=== PATIENT | female | born 1940 | race Caucasian/White ===

== ENCOUNTER 2017-11-08 11:18 | Inpatient (IN) ==
[2017-11-08] MEDS ORDERED: 0.9 % Sodium Chloride 1,000 ML IVC ONE (11:28)
--- NOTE | 2017-11-08 11:30 | Emergency Department Note ---
Disposition Clinical Impression: GI bleed, Leukocytosis, Tachycardia Disposition: Admitted As Inpatient Condition: Fair General Adult HPI - General Chief complaint: ED Syncope Stated complaint: Weakness,Black Stool Time Seen by Provider: 11/08/17 11:24 Source: patient Limitations: no limitations - History of Present Illness Pain Scale: 0 - Related Data Home Medications Medication Instructions Recorded Confirmed Amitriptyline [Elavil] 25 mg PO HS 11/08/17 11/08/17 Aspirin [Lo-Dose Aspirin EC] 81 mg PO DAILY 11/08/17 11/08/17 Previous Rx's Medication Instructions Recorded Clopidogrel [Plavix] 75 mg PO DAILY #30 tablet 08/27/17 Allergies Allergy/AdvReac Type Severity Reaction Status Date / Time No Known Allergies Allergy Verified 10/24/17 14:59 Past Medical History - Past Medical History Medical history: Reports: aortic aneurysm, coronary artery disease Surgical history: Reports: non-contributory Psychiatric history: Reports: no psych history SURVEYOR 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 ASSISTANT history: Reports: no SURVEYOR INSTRUMENT ASSISTANT history - Social History Smoking Status: Never smoker Smokeless Tobacco Status: No Alcohol use: Reports: none Drug use: Reports: none Physical Exam - General Limitations: no limitations General appearance: alert, in no apparent distress Course Vital Signs Temperature 98.1 F 11/08/17 11:19 Pulse Rate 130 11/08/17 11:19 Respiratory Rate 20 11/08/17 11:19 Blood Pressure 146/99 11/08/17 11:19 O2 Sat by Pulse Oximetry 99 11/08/17 11:19 Temperature 98.1 F 11/08/17 17:19 Pulse Rate 125 11/08/17 15:15 Respiratory Rate 20 11/08/17 17:19 Blood Pressure 135/63 11/08/17 17:19 O2 Sat by Pulse Oximetry 99 11/08/17 15:15 Oxygen Delivery Oxygen Delivery Room Air Medical Decision Making - Lab Data Result diagrams: 11/08/17 15:10 11/08/17 11:38 Lab Results 11/08/17 11/08/17 11/08/17 Range/Units 11:38 11:38 11:38 WBC 24.1 H (4.3-11.1) K/mcL RBC 3.03 L (3.82-4.97) M/mcL Hgb 9.4 L (11.5-15.4) g/dL Hct 28.5 L (35.3-44.9) % MCV 94.1 (83.0-100.0) fL MCH 31.0 (28.0-33.3) pg MCHC 33.0 (31.6-35.5) g/dL RDW 14.1 (11.5-14.5) % Plt Count 329 (140-400) K/mcL MPV 10.1 (9.4-12.4) fL Immature Gran % 3.7 (0-4) % Seg Neutrophils % 85.8 % Lymphocytes % 5.4 % Monocytes % 5.0 % Eosinophils % 0.0 % Basophils % 0.1 % Neutrophils # 20.7 H (1.6-8.9) K/mcL Lymphocytes # 1.3 (0.6-4.6) K/mcL Monocytes # 1.2 (0.0-1.3) K/mcL Eosinophils # 0.0 (0.0-0.6) K/mcL Basophils # 0.0 (0.0-0.2) K/mcL PT 11.9 (9.4-12.1) Seconds INR 1.1 Sodium 135 L (136-145) mEq/L Potassium 4.4 (3.5-5.1) mEq/L Chloride 106 (98-107) mEq/L Carbon Dioxide 19 L (23-29) mEq/L BUN 78 H (8-23) mg/dL Creatinine 1.01 (0.60-1.20) mg/dL Est GFR ( Amer) > 60 (> 60) Est GFR (Non-Af Amer) 53 L (> 60) BUN/Creatinine Ratio 77 H (6-26) Glucose 252 H (70-105) mg/dL POC Glucose (70-99) mg/dL Calculated Osmolality 312 H (280-300) Lactic Acid (0.5-2.2) mmol/L Calcium 8.3 L (8.6-10.3) mg/dL Magnesium 2.2 (1.6-2.6) mg/dL Total Bilirubin 0.5 (0.3-1.0) mg/dL AST 9 L (13-39) Units/L ALT 10 (7-52) Units/L Alkaline Phosphatase 76 (34-104) Units/L Troponin I 0.03 (< 0.04) ng/mL Serum Total Protein 5.7 L (6.4-8.9) g/dL Albumin 3.4 L (3.5-5.7) g/dL Globulin 2.3 L (2.4-3.5) g/dL Albumin/Globulin Ratio 1.5 (1.1-2.2) Urine Color (Yellow) Urine Clarity (Clear) Urine pH (5.0-8.0) pH Units Ur Specific [place] (1.010-1.025) Urine Protein (Neg-Trace) mg/dL Urine Glucose (UA) (Normal) mg/dL Urine Ketones (Negative) mg/dL Urine Blood (Negative) Urine Nitrite (Negative) Urine Bilirubin (Negative) Urine Urobilinogen (Normal) mg/dL Ur Leukocyte Esterase (Negative) Blood Type Antibody Screen Crossmatch 11/08/17 11/08/17 11/08/17 Range/Units 11:38 11:43 12:08 WBC (4.3-11.1) K/mcL RBC (3.82-4.97) M/mcL Hgb (11.5-15.4) g/dL Hct (35.3-44.9) % MCV (83.0-100.0) fL MCH (28.0-33.3) pg MCHC (31.6-35.5) g/dL RDW (11.5-14.5) % Plt Count (140-400) K/mcL MPV (9.4-12.4) fL Immature Gran % (0-4) % Seg Neutrophils % % Lymphocytes % % Monocytes % % Eosinophils % % Basophils % % Neutrophils # (1.6-8.9) K/mcL Lymphocytes # (0.6-4.6) K/mcL Monocytes # (0.0-1.3) K/mcL Eosinophils # (0.0-0.6) K/mcL Basophils # (0.0-0.2) K/mcL PT (9.4-12.1) Seconds INR Sodium (136-145) mEq/L Potassium (3.5-5.1) mEq/L Chloride (98-107) mEq/L Carbon Dioxide (23-29) mEq/L BUN (8-23) mg/dL Creatinine (0.60-1.20) mg/dL Est GFR ( Amer) (> 60) Est GFR (Non-Af Amer) (> 60) BUN/Creatinine Ratio (6-26) Glucose (70-105) mg/dL POC Glucose 218 H (70-99) mg/dL Calculated Osmolality (280-300) Lactic Acid (0.5-2.2) mmol/L Calcium (8.6-10.3) mg/dL Magnesium (1.6-2.6) mg/dL Total Bilirubin (0.3-1.0) mg/dL AST (13-39) Units/L ALT (7-52) Units/L Alkaline Phosphatase (34-104) Units/L Troponin I (< 0.04) ng/mL Serum Total Protein (6.4-8.9) g/dL Albumin (3.5-5.7) g/dL Globulin (2.4-3.5) g/dL Albumin/Globulin Ratio (1.1-2.2) Urine Color Yellow (Yellow) Urine Clarity Clear (Clear) Urine pH 5.5 (5.0-8.0) pH Units Ur Specific [place] 1.024 (1.010-1.025) Urine Protein Negative (Neg-Trace) mg/dL Urine Glucose (UA) 100 H (Normal) mg/dL Urine Ketones Negative (Negative) mg/dL Urine Blood Negative (Negative) Urine Nitrite Negative (Negative) Urine Bilirubin Negative (Negative) Urine Urobilinogen Normal (Normal) mg/dL Ur Leukocyte Esterase Negative (Negative) Blood Type O POSITIVE Antibody Screen NEGATIVE Crossmatch See Detail 11/08/17 Range/Units 12:17 WBC (4.3-11.1) K/mcL RBC (3.82-4.97) M/mcL Hgb (11.5-15.4) g/dL Hct (35.3-44.9) % MCV (83.0-100.0) fL MCH (28.0-33.3) pg MCHC (31.6-35.5) g/dL RDW (11.5-14.5) % Plt Count (140-400) K/mcL MPV (9.4-12.4) fL Immature Gran % (0-4) % Seg Neutrophils % % Lymphocytes % % Monocytes % % Eosinophils % % Basophils % % Neutrophils # (1.6-8.9) K/mcL Lymphocytes # (0.6-4.6) K/mcL Monocytes # (0.0-1.3) K/mcL Eosinophils # (0.0-0.6) K/mcL Basophils # (0.0-0.2) K/mcL PT (9.4-12.1) Seconds INR Sodium (136-145) mEq/L Potassium (3.5-5.1) mEq/L Chloride (98-107) mEq/L Carbon Dioxide (23-29) mEq/L BUN (8-23) mg/dL Creatinine (0.60-1.20) mg/dL Est GFR ( Amer) (> 60) Est GFR (Non-Af Amer) (> 60) BUN/Creatinine Ratio (6-26) Glucose (70-105) mg/dL POC Glucose (70-99) mg/dL Calculated Osmolality (280-300) Lactic Acid 2.8 H (0.5-2.2) mmol/L Calcium (8.6-10.3) mg/dL Magnesium (1.6-2.6) mg/dL Total Bilirubin (0.3-1.0) mg/dL AST (13-39) Units/L ALT (7-52) Units/L Alkaline Phosphatase (34-104) Units/L Troponin I (< 0.04) ng/mL Serum Total Protein (6.4-8.9) g/dL Albumin (3.5-5.7) g/dL Globulin (2.4-3.5) g/dL Albumin/Globulin Ratio (1.1-2.2) Urine Color (Yellow) Urine Clarity (Clear) Urine pH (5.0-8.0) pH Units Ur Specific [place] (1.010-1.025) Urine Protein (Neg-Trace) mg/dL Urine Glucose (UA) (Normal) mg/dL Urine Ketones (Negative) mg/dL Urine Blood (Negative) Urine Nitrite (Negative) Urine Bilirubin (Negative) Urine Urobilinogen (Normal) mg/dL Ur Leukocyte Esterase (Negative) Blood Type Antibody Screen Crossmatch Critical Care Time Critical Care Time: Yes Total Critical Care Time: 30 Attestation: The high probability of a clinically significant, sudden or life threatening deterioration of the [] system(s) required my full and direct attention, intervention and personal management. The aggregate critical care time was [] minutes. This time is in addition to time spent performing reported procedures but includes the following: [] Data Review and interpretation [] Patient assessment and monitoring of vital signs [] Documentation [] Medication orders and management Attestation Statement - Attestation Attestation: I examined this patient and my medical decision-making was reviewed with the Resident Physician. I agree with the documented findings, disposition and treatment plan as described except to the extent set forth below. [id number] time provided Patient arrives complaining of generalized weakness and dark colored stools. She is uncertain whether she takes blood thinners other than aspirin. She appears in no acute distress on exam. Workup in conjunction with the resident physician initiated
--- NOTE | 2017-11-08 11:40 | Emergency Department Note ---
Disposition Clinical Impression: Tachycardia GI bleed Qualifiers: GI bleed type/associated pathology: melena Qualified Code(s): K92.1 - Melena Leukocytosis Qualifiers: Leukocytosis type: unspecified Qualified Code(s): D72.829 - Elevated white blood cell count, unspecified Disposition: Admitted As Inpatient Condition: Fair Referrals: Renny Phelan Jr, MD [Primary Care Provider] - Forms: ED Satisfaction Letter Time of Disposition: 13:07 General Adult HPI - General Chief complaint: ED Syncope Stated complaint: Weakness,Black Stool Time Seen by Provider: 11/08/17 11:24 Source: patient Mode of arrival: ambulatory Limitations: no limitations Nursing Notes Reviewed: Yes Vital Signs Reviewed: Yes - History of Present Illness HPI Narrative: 77-year-old female currently on Plavix and aspirin presenting to the emergency Department chief complaint of weakness and black, tarry stools. Patient states for the past 3 days she has been feeling weak every time she has a bowel movement and has had dark, black tarry stools. Patient denies any history of GI bleed. Denies any chest pain or shortness of breath. Patient denies any fevers or recent illnesses. Denies any sick contacts. Pain Scale: 0 - Related Data Home Medications Medication Instructions Recorded Confirmed Amitriptyline [Elavil] 25 mg PO HS 11/08/17 11/08/17 Aspirin [Lo-Dose Aspirin EC] 81 mg PO DAILY 11/08/17 11/08/17 Previous Rx's Medication Instructions Recorded Clopidogrel [Plavix] 75 mg PO DAILY #30 tablet 08/27/17 Allergies Allergy/AdvReac Type Severity Reaction Status Date / Time No Known Allergies Allergy Verified 10/24/17 14:59 All systems ED: reviewed and negative except as stated. Gastrointestinal: Reports: melena Neurological: Reports: weakness Past Medical History - Past Medical History Attestation: Yes The following information was validated with the patient. Medical history: Reports: aortic aneurysm, coronary artery disease Surgical history: Reports: non-contributory Psychiatric history: Reports: no psych history ANIMAL CARE SPECIALIST history: Reports: no ANIMAL CARE SPECIALIST history - Social History Smoking Status: Never smoker Smokeless Tobacco Status: No Alcohol use: Reports: none Drug use: Reports: none Physical Exam - General Limitations: no limitations General appearance: alert, in no apparent distress - Head Head exam: atraumatic, normocephalic, normal inspection - Eye Eye exam: Present: normal appearance. Absent: scleral icterus, conjunctival injection - ENT ENT exam: normal exam, mucous membranes moist - Neck Neck exam: Present: normal inspection, full ROM. Absent: tenderness, meningismus - Chest Chest inspection: Present: normal inspection, symmetric chest wall rise. Absent : tenderness, rash - Respiratory Respiratory exam: Present: normal lung sounds bilaterally. Absent: respiratory distress, wheezes - Cardiovascular Cardiovascular exam: Present: normal rhythm, tachycardia - Abdominal Exam Abdominal exam: Present: soft, tenderness. Absent: distention, guarding, rebound, rigidity - Extremities Exam Extremities exam: Present: normal inspection, full ROM - Neurological Exam Neurological exam: Present: alert, oriented X3 - Psychiatric Psychiatric exam: Present: normal affect, normal mood - Skin Skin exam: Present: warm, intact Course Course Narrative: 77-year-old female presenting with GI bleed. Patient currently on Plavix and aspirin. Patient tachycardic upon arrival at 130 bpm. Otherwise vital signs stable. Bedside stool occult positive. We will provide the patient with a liter of fluids, Protonix and basic laboratory analysis along with type and screen. Disposition will be admission but pending results. Patient is alert and oriented 3 in the room. Tachycardic but otherwise stable. Patient agrees with this plan. - Reevaluation(s) Reevaluation #1: Patient's white blood cell count elevated. Due to this and her tachycardia we will add a urine analysis and chest x-ray to rule out any other infectious cause. Patient is alert and oriented 3 in the room. Tachycardic but otherwise stable. Patient agrees with this plan. Reevaluation #2: Patient's chest x-ray shows atelectasis versus pneumonia. Urine analysis within normal limits. I spoke with the hospitalist on-call who agrees to accept the patient at this time. We have not started the patient on antibiotics as we do not feel that she shows clinical signs and symptoms of pneumonia. Patient was given Protonix, fluid and is stable at this time. She is alert and oriented 3 in the room. Patient's heart rate lower but still tachycardic. Otherwise patient stable. We will plan to admit the patient at this time. Patient agrees with this plan. Vital Signs Temperature 98.1 F 11/08/17 11:19 Pulse Rate 130 11/08/17 11:19 Respiratory Rate 20 11/08/17 11:19 Blood Pressure 146/99 11/08/17 11:19 O2 Sat by Pulse Oximetry 99 11/08/17 11:19 Temperature 98.1 F 11/08/17 11:19 Pulse Rate 126 11/08/17 12:32 Respiratory Rate 18 11/08/17 12:32 Blood Pressure 135/63 11/08/17 12:32 O2 Sat by Pulse Oximetry 100 11/08/17 12:32 Oxygen Delivery Oxygen Delivery Room Air Medical Decision Making - Lab Data Result diagrams: 11/08/17 11:38 11/08/17 11:38 Lab Results 11/08/17 11/08/17 11/08/17 Range/Units 11:38 11:38 11:38 WBC 24.1 H (4.3-11.1) K/mcL RBC 3.03 L (3.82-4.97) M/mcL Hgb 9.4 L (11.5-15.4) g/dL Hct 28.5 L (35.3-44.9) % MCV 94.1 (83.0-100.0) fL MCH 31.0 (28.0-33.3) pg MCHC 33.0 (31.6-35.5) g/dL RDW 14.1 (11.5-14.5) % Plt Count 329 (140-400) K/mcL MPV 10.1 (9.4-12.4) fL Immature Gran % 3.7 (0-4) % Seg Neutrophils % 85.8 % Lymphocytes % 5.4 % Monocytes % 5.0 % Eosinophils % 0.0 % Basophils % 0.1 % Neutrophils # 20.7 H (1.6-8.9) K/mcL Lymphocytes # 1.3 (0.6-4.6) K/mcL Monocytes # 1.2 (0.0-1.3) K/mcL Eosinophils # 0.0 (0.0-0.6) K/mcL Basophils # 0.0 (0.0-0.2) K/mcL PT 11.9 (9.4-12.1) Seconds INR 1.1 Sodium 135 L (136-145) mEq/L Potassium 4.4 (3.5-5.1) mEq/L Chloride 106 (98-107) mEq/L Carbon Dioxide 19 L (23-29) mEq/L BUN 78 H (8-23) mg/dL Creatinine 1.01 (0.60-1.20) mg/dL Est GFR ( Amer) > 60 (> 60) Est GFR (Non-Af Amer) 53 L (> 60) BUN/Creatinine Ratio 77 H (6-26) Glucose 252 H (70-105) mg/dL Calculated Osmolality 312 H (280-300) Lactic Acid (0.5-2.2) mmol/L Calcium 8.3 L (8.6-10.3) mg/dL Magnesium 2.2 (1.6-2.6) mg/dL Total Bilirubin 0.5 (0.3-1.0) mg/dL AST 9 L (13-39) Units/L ALT 10 (7-52) Units/L Alkaline Phosphatase 76 (34-104) Units/L Troponin I 0.03 (< 0.04) ng/mL Serum Total Protein 5.7 L (6.4-8.9) g/dL Albumin 3.4 L (3.5-5.7) g/dL Globulin 2.3 L (2.4-3.5) g/dL Albumin/Globulin Ratio 1.5 (1.1-2.2) Urine Color (Yellow) Urine Clarity (Clear) Urine pH (5.0-8.0) pH Units Ur Specific [place] (1.010-1.025) Urine Protein (Neg-Trace) mg/dL Urine Glucose (UA) (Normal) mg/dL Urine Ketones (Negative) mg/dL Urine Blood (Negative) Urine Nitrite (Negative) Urine Bilirubin (Negative) Urine Urobilinogen (Normal) mg/dL Ur Leukocyte Esterase (Negative) Blood Type Antibody Screen 11/08/17 11/08/17 11/08/17 Range/Units 11:38 12:08 12:17 WBC (4.3-11.1) K/mcL RBC (3.82-4.97) M/mcL Hgb (11.5-15.4) g/dL Hct (35.3-44.9) % MCV (83.0-100.0) fL MCH (28.0-33.3) pg MCHC (31.6-35.5) g/dL RDW (11.5-14.5) % Plt Count (140-400) K/mcL MPV (9.4-12.4) fL Immature Gran % (0-4) % Seg Neutrophils % % Lymphocytes % % Monocytes % % Eosinophils % % Basophils % % Neutrophils # (1.6-8.9) K/mcL Lymphocytes # (0.6-4.6) K/mcL Monocytes # (0.0-1.3) K/mcL Eosinophils # (0.0-0.6) K/mcL Basophils # (0.0-0.2) K/mcL PT (9.4-12.1) Seconds INR Sodium (136-145) mEq/L Potassium (3.5-5.1) mEq/L Chloride (98-107) mEq/L Carbon Dioxide (23-29) mEq/L BUN (8-23) mg/dL Creatinine (0.60-1.20) mg/dL Est GFR ( Amer) (> 60) Est GFR (Non-Af Amer) (> 60) BUN/Creatinine Ratio (6-26) Glucose (70-105) mg/dL Calculated Osmolality (280-300) Lactic Acid 2.8 H (0.5-2.2) mmol/L Calcium (8.6-10.3) mg/dL Magnesium (1.6-2.6) mg/dL Total Bilirubin (0.3-1.0) mg/dL AST (13-39) Units/L ALT (7-52) Units/L Alkaline Phosphatase (34-104) Units/L Troponin I (< 0.04) ng/mL Serum Total Protein (6.4-8.9) g/dL Albumin (3.5-5.7) g/dL Globulin (2.4-3.5) g/dL Albumin/Globulin Ratio (1.1-2.2) Urine Color Yellow (Yellow) Urine Clarity Clear (Clear) Urine pH 5.5 (5.0-8.0) pH Units Ur Specific [place] 1.024 (1.010-1.025) Urine Protein Negative (Neg-Trace) mg/dL Urine Glucose (UA) 100 H (Normal) mg/dL Urine Ketones Negative (Negative) mg/dL Urine Blood Negative (Negative) Urine Nitrite Negative (Negative) Urine Bilirubin Negative (Negative) Urine Urobilinogen Normal (Normal) mg/dL Ur Leukocyte Esterase Negative (Negative) Blood Type O POSITIVE Antibody Screen NEGATIVE - EKG Data EKG #1 EKG attestation: Yes I reviewed and interpreted this EKG. EKG results narrative: Sinus tachycardia. Left ventricular hypertrophy. 136 bpm. NC interval 132, QRS 82, QTC 364. No signs of acute ST segment elevation or ischemia.
[2017-11-08 11:49] LABS: Basophils % 0.1 %; Hematocrit 28.5 % (35.3-44.9); Hemoglobin 9.4 g/dL (11.5-15.4); Immature Granulocytes % 3.7 % (0-4); Lymphocytes # 1.3 K/mcL (0.6-4.6); Lymphocytes % 5.4 %; Mean Corpuscular Volume 94.1 fL (83.0-100.0); Mean Platelet Volume 10.1 fL (9.4-12.4); Monocytes # 1.2 K/mcL (0.0-1.3); Neutrophils # 20.7 K/mcL (1.6-8.9); Platelet Count 329 K/mcL (140-400); Red Blood Count 3.03 M/mcL (3.82-4.97); Red Cell Distribution Width 14.1 % (11.5-14.5); Segmented Neutrophils % 85.8 %
[2017-11-08 11:58] LABS: INR 1.1; Prothrombin Time 11.9 Seconds (9.4-12.1)
[2017-11-08] MEDS ORDERED: Pantoprazole 40 MG VIAL IVP ONE (11:59)
[2017-11-08 12:11] LABS: Troponin I 0.03 ng/mL (< 0.04)
[2017-11-08 12:12] LABS: Alanine Aminotransferase 10 Units/L (7-52); Albumin 3.4 g/dL (3.5-5.7); Albumin/Globulin Ratio 1.5 (1.1-2.2); Alkaline Phosphatase 76 Units/L (34-104); Aspartate Amino Transferase 9 Units/L (13-39); BUN/Creatinine Ratio 77 (6-26); Bilirubin,Total 0.5 mg/dL (0.3-1.0); Blood Urea Nitrogen 78 mg/dL (8-23); Calcium 8.3 mg/dL (8.6-10.3); Carbon Dioxide 19 mEq/L (23-29); Chloride 106 mEq/L (98-107); Globulin 2.3 g/dL (2.4-3.5); Glucose 252 mg/dL (70-105); Magnesium 2.2 mg/dL (1.6-2.6); Osmolality,Calculated 312 (280-300); Potassium 4.4 mEq/L (3.5-5.1); Sodium 135 mEq/L (136-145); Total Protein 5.7 g/dL (6.4-8.9); eGFR For African Americans > 60 (> 60); eGFR For Non-African Americans 53 (> 60)
[2017-11-08 12:28] LABS: Bilirubin,Urine Negative (Negative); Blood,Urine Negative (Negative); Clarity,Urine Clear (Clear); Color,Urine Yellow (Yellow); Glucose,Urine (UA) 100 mg/dL (Normal); Ketones,Urine Negative (Negative); Leukocyte Esterase,Urine Negative (Negative); Nitrite,Urine Negative (Negative); PH,Urine 5.5 pH Units (5.0-8.0); Protein,Urine Negative (Neg-Trace); Specific Gravity,Urine 1.024 (1.010-1.025); Urobilinogen,Urine Normal (Normal)
--- NOTE | 2017-11-08 13:18 | Internal Med History&Physical ---
Date of Encounter: 11/08/17 Time of Encounter: 13:38 Internal Medicine - H&P: HPI Chief complaint: Dark black stool Admitted From: Emergency Dept Plans for Post Hospital Care: Home History of present illness: Ms. Valdivia is a 77 year old female 77-year-old woman presented in the ER this am with several days of melena. She takes Plavix and aspirin for a prior stroke/cerebral aneurysm. Her last known Hgb is from Aug 2017 (13.3) and today her Hgb is 9.4. Shew was given IV protonix 40 mg once in the ER. Her last dose of both aspirin and Plavix was yesterday. Other than mild weakness she's relatively asymtomatic. However, she has a leukocytosis of 24.1 without fever or any signs of infection. She had a remote EGD and colonoscopy but cannot recall the findings but is sure she did not have ulcers or errosions. While in the ER she developed SVT with rates in the 170s to 200's and a rapid response was called. She was given IVFs and adenosine and converted to sinus tachycardia with a rate in 120-140s. Cardiology was called by the ER and a Cardizem drip was started. Her BP remains stable. Past Med Surg Social Fam HX - Past Medical History Medical history: aortic aneurysm, coronary artery disease Psychiatric history: no psych history - Past Surgical History Surgical History: non-contributory - Social History Smoking Status: Never smoker Smokeless Tobacco Status: No Alcohol use: none Drug use: none Internal Medicine - H&P: Meds Clopidogrel [Plavix] 75 mg PO DAILY #30 tablet 08/27/17 [Rx] Amitriptyline [Elavil] 25 mg PO HS 11/08/17 [History] Aspirin [Lo-Dose Aspirin EC] 81 mg PO DAILY 11/08/17 [History] 3 Allergy/AdvReac Type Severity Reaction Status Date / Time No Known Allergies Allergy Verified 10/24/17 14:59 All Systems PM: A 10-system review of systems was performed and is negative for pertinent findings except as documented above in the HPI. - Constitutional Constitutional: no chills, no fever(s), no lethargy - EENT Eyes: no blurry vision, no diplopia, no pain Nose, mouth and throat: no bleeding gums, no dental pain, no epistaxis - Cardiovascular Cardiovascular ROS IM: irregular heart rhythm, no chest pain, no diaphoresis - Respiratory Respiratory: no dyspnea, no hemoptysis, no wheezing - Gastrointestinal Gastrointestinal: diarrhea, melena, no coffee ground emesis, no dyspepsia, no dysphagia, no vomiting - Neurological Neurological ROS: no abnormal hearing, no abnormal speech, no behavioral changes , no confusion, no dizziness, no frequent falls - Constitutional Vitals: Temp Pulse Resp BP Pulse Ox 98.1 F 126 18 135/63 100 11/08/17 11:19 11/08/17 12:32 11/08/17 12:32 11/08/17 12:32 11/08/17 12:32 General appearance: Present: cooperative, A&O X 3, pleasant, no acute distress - Head Head exam: Present: atraumatic, normocephalic - Eye Eye exam: Present: EOMI, conjuntiva pink, sclera anicteric - ENT ENT exam: Present: mucous membranes moist, normal exam - Neck Neck exam general surgery: Present: full ROM, supple, trachea midline. Absent: nuchal rigidity, thyromegaly - Respiratory Respiratory exam: Present: CTAB. Absent: accessory muscle use, rales, stridor, wheezes, tachypnea - Cardiovascular Cardiovascular exam: Present: tachycardia. Absent: bradycardia, clicks, JVD - GI/Abdominal GI/Abdominal exam: Present: soft. Absent: distended, firm, guarding, rebound, rigid - Neurological Exam Neurological exam: Present: alert, CN II-XII intact, oriented X3. Absent: facial droop - Psychiatric Psychiatric exam: Present: normal affect, normal mood Internal Med - H&P Results - Labs CBC & Chem 7: 11/08/17 11:38 11/08/17 11:38 Labs: Short CBC 11/08/17 Range/Units 11:38 WBC 24.1 H (4.3-11.1) K/mcL Hgb 9.4 L (11.5-15.4) g/dL Hct 28.5 L (35.3-44.9) % Plt Count 329 (140-400) K/mcL Neutrophils # 20.7 H (1.6-8.9) K/mcL BMP 11/08/17 11:38 Sodium 135 L Potassium 4.4 Chloride 106 Carbon Dioxide 19 L BUN 78 H Creatinine 1.01 Glucose 252 H Calcium 8.3 L Cardiac Enzymes 11/08/17 Range/Units 11:38 Troponin I 0.03 (< 0.04) ng/mL Liver Function 11/08/17 Range/Units 11:38 Total Bilirubin 0.5 (0.3-1.0) mg/dL AST 9 L (13-39) Units/L ALT 10 (7-52) Units/L Alkaline Phosphatase 76 (34-104) Units/L Albumin 3.4 L (3.5-5.7) g/dL Urine 11/08/17 Range/Units 12:08 Urine Color Yellow (Yellow) Urine Clarity Clear (Clear) Urine pH 5.5 (5.0-8.0) pH Units Ur Specific [place] 1.024 (1.010-1.025) Urine Protein Negative (Neg-Trace) mg/dL Urine Glucose (UA) 100 H (Normal) mg/dL - Impressions ITS Impressions Chest X-Ray 11/08/17 12:01 IMPRESSION: Subtle increased opacity in right lung base, either atelectasis or pneumonia in the appropriate clinical setting. Otherwise stable chest. D/ / Keyona Lafleur MD / Keyona Lafleur MD Interpreting Provider: Keyona Lafleur MD - Assessment and plan (1) Gastrointestinal hemorrhage with melena Current Visit: Yes Status: Acute Assessment and plan: Serial H&H for q6 hrs for 24 hrs GI called Type and match Continue holding Aspirin and Plavix IVFs at 125 ml/hr Protonix 40mg IVP BID Await recommendations for GI Code(s): K92.1 - Melena (2) SVT (supraventricular tachycardia) Current Visit: Yes Status: Acute Assessment and plan: Adenosine given in ER Cardizem drip started Cardiology consulted Trp being trended (3) Leukocytosis, unspecified Current Visit: Yes Status: Acute Assessment and plan: Cipro and Flagyl empirically started No active signs of infection Qualifiers: Leukocytosis type: unspecified Qualified Code(s): D72.829 - Elevated white blood cell count, unspecified (4) History of cerebral aneurysm repair Current Visit: Yes Status: Acute Assessment and plan: Holding aspirin and Plavix (5) DVT prophylaxis Current Visit: No Status: Chronic Assessment and plan: SCDs No anticoagulation due to GI bleed SNOMED Code(s): 008183498 - Time Spent With Patient Total time spent is greater than 50% in coordination of care (as documented) at patient's floor/unit and/or counseling patient: Greater than 35 minutes
--- NOTE | 2017-11-08 14:01 | Gastroenterology Consult Note ---
<RobertcinthiaMarycarmen H - Last Filed: 11/08/17 14:34> Date of Encounter: 11/08/17 Time of Encounter: 13:59 - Assessment and plan (1) GI bleed Status: Acute Assessment and plan: 77-year-old female currently on aspirin and Plavix for vertebral artery stenosis presents with three-day history of melena, fatigue, and weakness. -Tachycardia which shows minimal improvement with fluid resuscitation in the emergency department. -Hemoglobin currently 9.4. -With tachycardia and hemoglobin trending down, we will order 1 unit of packed red blood cells. -Continue to trend H&H. -Agree with Protonix. -NPO now. -EGD tomorrow, possible colonoscopy the day after. Qualifiers: GI bleed type/associated pathology: melena Qualified Code(s): K92.1 - Melena (2) Tachycardia Status: Acute Assessment and plan: EKG demonstrates sinus tachycardia, no signs of ischemia. -Continue resuscitation of anemia. -Management per primary team. - Time Spent With Patient Total time spent is greater than 50% in coordination of care (as documented) at patient's floor/unit and/or counseling patient: GI History of Present Illness - Data of Consult Patient: new to practice Consult date: 11/08/17 Requesting Physician: Woody Desai - Consult Narrative Reason for consult: GI Bleed History of present illness: Ms. Valdivia is a 77 year old female with past medical history lateral rectus palsy , brain aneurysm, vertigo, internal carotid artery occlusion, and vertebral artery stenosis. Per review of the medical record, patient is taking aspirin and Plavix secondary to stenosis of her vertebral artery. Patient presents to [facility] on 11/08/2017 with complaints of weakness and darkened stool. She states she had been experiencing constipation for which she drank prune juice for around 4 days ago. Approximately 3 days ago, she had a bowel movement, at which time she recognized this as being blackened and tar- like. She complains of generalized fatigue and weakness. She denies any abdominal pain, nausea, vomiting, hematochezia, or hematemesis. She denies any chest pain, shortness of breath, palpitations, nausea, or diaphoresis. Patient does report a history of chronic headaches for which she follows with neurology. She denies any sensory deficits. She denies any active dizziness. Head and neck imaging demonstrates no signs of infarct. Per patient, she states she has never had a colonoscopy. Reports family history of tongue and bowel cancer. Colonoscopy: never EGD: none Past Med Surg Social Fam HX - Past Medical History Attestation: Yes The following information was validated with the patient. Source: patient, old records reviewed Medical history: aortic aneurysm, coronary artery disease Psychiatric history: no psych history - Past Surgical History Surgical History: non-contributory, hysterectomy - Social History Smoking Status: Never smoker Smokeless Tobacco Status: No Alcohol use: none Drug use: none - Gastrointestinal NSAID use: ASA Anticoagulation Use: ASA and Plavix Number of BM Per Day: 1 Gastrointestinal: Present: constipation, melena. Absent: change in bowel habits , coffee ground emesis, diarrhea, hematochezia, nausea, vomiting - Constitutional Constitutional: fatigue, no fever(s), no weight gain, no weight loss - EENT Nose, mouth and throat: Absent: dysphagia - Cardiovascular Cardiovascular ROS: Absent: chest pain, irregular heart rhythm, palpitations - Respiratory Respiratory IM: Absent: cough, dyspnea - Neurological ROS Neurological GI: Present: headache(s), weakness. Absent: frequent falls, memory loss - Integumentary Integumentary GI: Absent: pruritis, rash - Constitutional Vitals: Temp Pulse Resp BP Pulse Ox 98.1 F 126 18 135/63 100 11/08/17 11:19 11/08/17 12:32 11/08/17 12:32 11/08/17 12:32 11/08/17 12:32 General appearance: Present: cooperative, A&O X 3, no acute distress, answers questions appropriately - Head Head exam: Present: atraumatic, normocephalic - Eye Eye exam: Present: normal appearance, sclera anicteric - Neck Neck exam general surgery: Present: normal inspection, trachea midline - Respiratory Respiratory exam: Present: CTAB - Cardiovascular Cardiovascular exam: Present: +S1, +S2, tachycardia - GI/Abdominal GI/Abdominal exam: Present: normal bowel sounds, soft, no peritoneal signs. Absent: firm, guarding, tenderness - Expanded GI/Abdominal Exam GI/Abdominal exam expanded: Absent: ascites - Rectal Rectal exam: Present: black stool (maroon and black), heme (+) stool - Extremities Exam Extremities exam: Present: warm, radial pulses palpable and symmetrical. Absent : pedal edema - Neurological Exam Neurological exam: Present: alert, oriented X3, no focal deficits. Absent: facial droop - Psychiatric Psychiatric exam: Present: normal affect, normal mood - Skin Skin exam: Present: dry, intact, normal color, warm Results - Labs CBC & Chem 7: 11/08/17 11:38 11/08/17 11:38 Labs: Last Result Calcium 8.3 mg/dL (8.6-10.3) L 11/08/17 11:38 Troponin I 0.03 ng/mL (< 0.04) 11/08/17 11:38 Entire Visit Hgb 9.4 g/dL (11.5-15.4) L 11/08/17 11:38 Hct 28.5 % (35.3-44.9) L 11/08/17 11:38 PT 11.9 Seconds (9.4-12.1) 11/08/17 11:38 Total Bilirubin 0.5 mg/dL (0.3-1.0) 11/08/17 11:38 AST 9 Units/L (13-39) L 11/08/17 11:38 ALT 10 Units/L (7-52) 11/08/17 11:38 - ABG ABG results: PT/INR, D-dimer PT 11.9 Seconds (9.4-12.1) 11/08/17 11:38 - Impressions Impressions Chest X-Ray 11/08/17 12:01 IMPRESSION: Subtle increased opacity in right lung base, either atelectasis or pneumonia in the appropriate clinical setting. Otherwise stable chest. D/ / Keyona Lafleur MD / Keyona Lafleur MD Interpreting Provider: Keyona Lafleur MD Consult Discharge Plan - Plan Instructions: Metoprolol (By mouth), Sucralfate (By mouth), Omeprazole (By mouth) Referrals: Cullen Schmidt MD [Partnered Physician] - (1-2 weeks) Renny Phelan Jr, MD [Primary Care Provider] - (1-2 weeks) Prescriptions: Omeprazole [PriLOSEC] 20 mg PO BIDAC #60 cap Sucralfate [Carafate] 1 gm PO QIDAC #120 tablet <Cullen Schmidt - Last Filed: 11/28/17 05:03> Date of Encounter: 11/08/17 - Time Spent With Patient Total time spent is greater than 50% in coordination of care (as documented) at patient's floor/unit and/or counseling patient: GI History of Present Illness - Data of Consult Requesting Physician: Hernan Mckeon MD - Consult Narrative History of present illness: Ms. Valdivia is a 77 year old female - Constitutional Vitals: Temp Pulse Resp BP Pulse Ox 98.0 F 93 15 133/65 96 11/11/17 10:04 11/11/17 10:04 11/11/17 10:04 11/11/17 10:04 11/11/17 10:04 Results - Labs CBC & Chem 7: 11/11/17 03:40 11/10/17 04:18 Labs: Last Result Calcium 8.1 mg/dL (8.6-10.3) L 11/10/17 04:18 Troponin I 0.04 ng/mL (< 0.04) H* 11/09/17 03:45 Entire Visit Hgb 8.5 g/dL (11.5-15.4) L D 11/11/17 03:40 Hct 26.2 % (35.3-44.9) L 11/11/17 03:40 PT 11.9 Seconds (9.4-12.1) 11/08/17 11:38 Total Bilirubin 0.5 mg/dL (0.3-1.0) 11/08/17 11:38 AST 9 Units/L (13-39) L 11/08/17 11:38 ALT 10 Units/L (7-52) 11/08/17 11:38 - ABG ABG results: PT/INR, D-dimer PT 11.9 Seconds (9.4-12.1) 11/08/17 11:38 - Attending Attestation Plan EGD and colonoscopy. Anticoagulation chronic for vertebral artery narrowing. I examined this patient and my medical decision-making was reviewed with the Resident Physician. I agree with the documented findings, disposition and treatment plan as described except to the extent set forth below.
[2017-11-08] MEDS ORDERED: *HR* Adenosine 6 MG/2 ML SYRINGE IVP ONE (14:25)
[2017-11-08] MEDS ORDERED: *HR* Adenosine 6 MG/2 ML VIAL IVP ONE ×2 (14:37)
[2017-11-08 15:23] LABS: Hematocrit 24.9 % (35.3-44.9); Hemoglobin 7.9 g/dL (11.5-15.4)
[2017-11-08] MEDS ORDERED: 0.9 % Sodium Chloride 250 ML ONE ×2 (15:36→22:44)
[2017-11-08] MEDS: MetroNIDAZOLE 500 MG/100 ML 500 MG/100 ML BAG IVPB SCH (18:20)
[2017-11-08] MEDS: Pantoprazole 40 MG VIAL IVP SCH (18:25)
[2017-11-08 20:30] LABS: Hematocrit 22.3 % (35.3-44.9); Hemoglobin 7.5 g/dL (11.5-15.4)
[2017-11-09] MEDS: MetroNIDAZOLE 500 MG/100 ML 500 MG/100 ML BAG IVPB SCH ×3 (02:29→17:20)
[2017-11-09 04:32] LABS: Basophils % 0.1 %; Eosinophils % 0.1 %; Hemoglobin 8.1 g/dL (11.5-15.4); Immature Granulocytes % 4.1 % (0-4); Lymphocytes # 1.6 K/mcL (0.6-4.6); Lymphocytes % 9.1 %; Mean Corpuscular HGB Conc 33.8 g/dL (31.6-35.5); Mean Corpuscular Hemoglobin 30.7 pg (28.0-33.3); Mean Corpuscular Volume 90.9 fL (83.0-100.0); Mean Platelet Volume 10.3 fL (9.4-12.4); Monocytes % 5.7 %; Neutrophils # 13.9 K/mcL (1.6-8.9); Platelet Count 224 K/mcL (140-400); Red Blood Count 2.64 M/mcL (3.82-4.97); Red Cell Distribution Width 15.2 % (11.5-14.5); Segmented Neutrophils % 80.9 %
[2017-11-09] MEDS: Pantoprazole 40 MG VIAL IVP SCH ×2 (05:48→17:19)
[2017-11-09] MEDS ORDERED: *HR* Propofol 200 MG/20 ML VIAL IVP ONE (07:59)
[2017-11-09] MEDS ORDERED: Lidocaine -MPF 2% 2 ML VIAL ONE (08:00)
--- NOTE | 2017-11-09 08:40 | Anesthesia Evaluation PreOp ---
Date of Encounter: 11/09/17 Time of Encounter: 08:34 - Past History Planned Operation: EGD re: Melena admitted thru ER 11/08/17 Cardiac History: Denies any Significant Hx (PVDz), Arrhythmia (SVT yesterday in ED HR 170s-200s converted to ST 120s-140s with Adenosine. Stable since), Pacemaker/ICD, Other (Spoke to Dr. 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 ASA/Plavix started 08/2017 for Carotid Artery occluded branches of Carotid]), Other (BRAIN MRI 08/27/2017 -) Other Medical History: Denies Any Significant HX Anesthesia History: No Prior Anesthetic Complications, Past Anesthesia (Hyster) Alcohol Use: none Drug use: none Medications and Allergies Clopidogrel [Plavix] 75 mg PO DAILY #30 tablet 08/27/17 [Rx] Amitriptyline [Elavil] 25 mg PO HS 11/08/17 [History] Aspirin [Lo-Dose Aspirin EC] 81 mg PO DAILY 11/08/17 [History] 3 Allergy/AdvReac Type Severity Reaction Status Date / Time No Known Allergies Allergy Verified 10/24/17 14:59 - Meds/Allergy Pre-op Review Medications Reviewed: Yes Allergies Reviewed: Yes Beta Blockers on Current Med List: No Anesthesia Results - Labs 11/09/17 03:45 11/08/17 11:38 Laboratory Results WBC 17.2 K/mcL (4.3-11.1) H 11/09/17 03:45 RBC 2.64 M/mcL (3.82-4.97) L 11/09/17 03:45 Hgb 8.1 g/dL (11.5-15.4) L 11/09/17 03:45 Hct 24.0 % (35.3-44.9) L 11/09/17 03:45 MCV 90.9 fL (83.0-100.0) 11/09/17 03:45 MCH 30.7 pg (28.0-33.3) 11/09/17 03:45 MCHC 33.8 g/dL (31.6-35.5) 11/09/17 03:45 RDW 15.2 % (11.5-14.5) H 11/09/17 03:45 Plt Count 224 K/mcL (140-400) 11/09/17 03:45 MPV 10.3 fL (9.4-12.4) 11/09/17 03:45 Immature Gran % 4.1 % (0-4) H 11/09/17 03:45 Seg Neutrophils % 80.9 % 11/09/17 03:45 Lymphocytes % 9.1 % 11/09/17 03:45 Monocytes % 5.7 % 11/09/17 03:45 Eosinophils % 0.1 % 11/09/17 03:45 Basophils % 0.1 % 11/09/17 03:45 Neutrophils # 13.9 K/mcL (1.6-8.9) H 11/09/17 03:45 Lymphocytes # 1.6 K/mcL (0.6-4.6) 11/09/17 03:45 Monocytes # 1.0 K/mcL (0.0-1.3) 11/09/17 03:45 Eosinophils # 0.0 K/mcL (0.0-0.6) 11/09/17 03:45 Basophils # 0.0 K/mcL (0.0-0.2) 11/09/17 03:45 PT 11.9 Seconds (9.4-12.1) 11/08/17 11:38 INR 1.1 11/08/17 11:38 Sodium 135 mEq/L (136-145) L 11/08/17 11:38 Potassium 4.4 mEq/L (3.5-5.1) 11/08/17 11:38 Chloride 106 mEq/L (98-107) 11/08/17 11:38 Carbon Dioxide 19 mEq/L (23-29) L 11/08/17 11:38 BUN 78 mg/dL (8-23) H 11/08/17 11:38 Creatinine 1.01 mg/dL (0.60-1.20) 11/08/17 11:38 Est GFR ( Amer) > 60 (> 60) 11/08/17 11:38 Est GFR (Non-Af Amer) 53 (> 60) L 11/08/17 11:38 BUN/Creatinine Ratio 77 (6-26) H 11/08/17 11:38 Glucose 252 mg/dL (70-105) H 11/08/17 11:38 POC Glucose 218 mg/dL (70-99) H 11/08/17 11:43 Calculated Osmolality 312 (280-300) H 11/08/17 11:38 Lactic Acid 1.5 mmol/L (0.5-2.2) 11/08/17 16:54 Calcium 8.3 mg/dL (8.6-10.3) L 11/08/17 11:38 Magnesium 2.2 mg/dL (1.6-2.6) 11/08/17 11:38 Total Bilirubin 0.5 mg/dL (0.3-1.0) 11/08/17 11:38 AST 9 Units/L (13-39) L 11/08/17 11:38 ALT 10 Units/L (7-52) 11/08/17 11:38 Alkaline Phosphatase 76 Units/L (34-104) 11/08/17 11:38 Troponin I 0.04 ng/mL (< 0.04) H* 11/09/17 03:45 Serum Total Protein 5.7 g/dL (6.4-8.9) L 11/08/17 11:38 Albumin 3.4 g/dL (3.5-5.7) L 11/08/17 11:38 Globulin 2.3 g/dL (2.4-3.5) L 11/08/17 11:38 Albumin/Globulin Ratio 1.5 (1.1-2.2) 11/08/17 11:38 Urine Color Yellow (Yellow) 11/08/17 12:08 Urine Clarity Clear (Clear) 11/08/17 12:08 Urine pH 5.5 pH Units (5.0-8.0) 11/08/17 12:08 Ur Specific [place] 1.024 (1.010-1.025) 11/08/17 12:08 Urine Protein Negative mg/dL (Neg-Trace) 11/08/17 12:08 Urine Glucose (UA) 100 mg/dL (Normal) H 11/08/17 12:08 Urine Ketones Negative mg/dL (Negative) 11/08/17 12:08 Urine Blood Negative (Negative) 11/08/17 12:08 Urine Nitrite Negative (Negative) 11/08/17 12:08 Urine Bilirubin Negative (Negative) 11/08/17 12:08 Urine Urobilinogen Normal mg/dL (Normal) 11/08/17 12:08 Ur Leukocyte Esterase Negative (Negative) 11/08/17 12:08 Blood Type O POSITIVE 11/08/17 11:38 Antibody Screen NEGATIVE 11/08/17 11:38 Crossmatch See Detail 11/08/17 11:38 Impressions Chest X-Ray 11/08/17 12:01 IMPRESSION: Subtle increased opacity in right lung base, either atelectasis or pneumonia in the appropriate clinical setting. Otherwise stable chest. D/ / Keyona Lafleur MD / Keyona Lafleur MD Interpreting Provider: Keyona Lafleur MD CTA 08/27/2017 [id number] CT/CT angio neck IMPRESSION: 1. No significant stenosis of the right internal carotid artery. The findings on the previous MR angiogram are consistent with artifactual loss of signal due to the patient's known stent within the cavernous and supraclinoid segments of the right internal carotid artery. 2. 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 3. Otherwise, unremarkable CT angiogram of the neck. - Imaging EKG: image reviewed Anesthesia Exam O2 Sat Height 1.68 m Weight 76.7 kg Weight 72.575 kg O2 Sat by Pulse Oximetry 98 O2 Sat by Pulse Oximetry 97 O2 Sat by Pulse Oximetry 100 O2 Sat by Pulse Oximetry 100 O2 Sat by Pulse Oximetry 96 O2 Sat by Pulse Oximetry 99 O2 Sat by Pulse Oximetry 98 O2 Sat by Pulse Oximetry 98 O2 Sat by Pulse Oximetry 100 O2 Sat by Pulse Oximetry 99 O2 Sat by Pulse Oximetry 99 Vital Signs Temp Pulse Resp BP Pulse Ox 98.1 F 130 20 146/99 99 11/08/17 11:19 11/08/17 11:19 11/08/17 11:19 11/08/17 11:19 11/08/17 11:19 - HEENT Pupil (Motor): Pupils equal, EOMI Mallampati: II Teeth: Normal Oral Opening: Greater than 3 - ELECTROLYSIS OPERATOR LOC: Oriented ELECTROLYSIS OPERATOR Motor: Normal RUE, Normal LUE, Normal RLE, Normal LLE, Normal Face ELECTROLYSIS OPERATOR Sensory: Normal: RUE, LUE, RLE, LLE, Face - Cardiac Rhythm: Regular Murmur: None - Pulmonary Breath Sounds: bilateral Clear Respiratory Effort: Symmetrical Anesthesia Assess/Plan ASA Score: 3 (Dysrythmia 11/08/2017, CVA/Aneurysm,) Modified Cut Off Scale for Level of Consciousness: Cooperative, oriented, and tranquil Anesthetic Plan: MAC Monitoring Plan: Standard Monitors Recovery Plan: PACU Anes Supervising Prov Stmt: Pt seen/evaluated, R&B discussed, questions answered and consent obtained. Robert Nicole MD
[2017-11-09] MEDS: *HR* EPINEPHrine 1 MG/10 ML SYRINGE INTRATRACH PRN ×2 (09:32→09:42)
[2017-11-09] MEDS ORDERED: *HR* EPINEPHrine 1 MG/10 ML SYRINGE ONE (09:33)
--- NOTE | 2017-11-09 12:40 | Cardiology Consult Note ---
<Vida Maldonado - Last Filed: 11/09/17 12:50> Date of Encounter: 11/09/17 Time of Encounter: 09:00 Assessment and Plan (1) GI bleed Current Visit: Yes Status: Acute Per cardiology: -Admitted with melena, GI bleed. -Management per primary and GI services. Qualifiers: GI bleed type/associated pathology: melena Qualified Code(s): K92.1 - Melena (2) SVT (supraventricular tachycardia) Current Visit: Yes Status: Acute Per cardiology: -Reported SVT while in ER, no strips or ECGs to review. Was given adenosine per reports. -ECG with sinus tachycardia, HR 150s. Review with . -AVerage HR 108,ST -ON cardizem drip. -Will start beta andrey, wean off cardizem drip, -Will check TTE. (3) Elevated troponin Current Visit: Yes Status: Acute Per cardiology: Troponins 0.03, 0.04x3 in the setting of GI bleed, tachycardia. -Denies chest pain. -NO acute ischemic ECG changes. -ON asa, plavix -Do not suspect NSTEMI, suspect demand ischemia related to above. NO cardiac rehab consult warranted. -TTE pending. -Will start statin, beta andrey. (4) Preop cardiovascular exam Current Visit: Yes Status: Acute Per cardiology: -Preop risk assessment for EGD/colonoscopy. Patient seen and examined in endoscopy suite. -Deneis previous cardiac history. -Denies chest pain. -Poor functional capacity. -Repoted SVT on admission. -Ideally, prior to surgery would obtain echocardiogram/stress testing, however EGD is urgent due to acute blood loss. Patient is at least moderate risk for cardiovascular complications in the ru-operative period. Discussed and reviewed with . Discussion w patient/family: The assessment and plan as outlined above was discussed with the patient and/or family members who expressed understanding and agreement. All questions were answered. Thank you for involving us in the care of your patient. Please call with any questions. Discussed and reviewed with . History of Present Illness Consult date: 11/08/17 Requesting physician: Moise Desai Consult reason: SVT Chief complaint: weakness, dark stools. History of present illness: Ms. Valdivia is a 77 year old female with a relevant past medical history of carotid artery stenosis, brain aneurysm who presented to [facility] with complaints of weakness and dark stools. Cardioloy has been consulted for SVT and pre-op risk assessment. Per review of records, SVT was noted while patient was in ER and was given adenosine. No strips, ECGs to review with SVT. Patient denies chest pain. States shortness of breath and dizziness. Patient reports fatigue and states the most activity she does at home is walking around the house. Patient states she is pretty sedentary and stays in her recliner most of the time. Past Med Surg Social Fam HX - Past Medical History Attestation: Yes The following information was validated with the patient. Source: patient, old records reviewed, obtained from family Medical history: other (Carotid artery disease) Psychiatric history: no psych history - Past Surgical History Surgical History: non-contributory - Social History Smoking Status: Never smoker Smokeless Tobacco Status: No Alcohol use: none Drug use: none - Family History Mother Living Status: Age at : 91 Cause of : heart Hx Family Cardiac Disorders: Yes Hx Family Respiratory Disorders: No Hx Family Cancer: No Hx Family Endocrine Disorder: No Hx Family Medical Disorders: Yes Medications and Allergies Clopidogrel [Plavix] 75 mg PO DAILY #30 tablet 08/27/17 [Rx] Amitriptyline [Elavil] 25 mg PO HS 11/08/17 [History] Aspirin [Lo-Dose Aspirin EC] 81 mg PO DAILY 11/08/17 [History] 3 Allergy/AdvReac Type Severity Reaction Status Date / Time No Known Allergies Allergy Verified 10/24/17 14:59 All Systems Review: The remainder of the systems were reviewed and are negative - Constitutional Constitutional: weakness - Cardiovascular Cardiovascular: as per HPI, dyspnea on exertion - Neurological Neurological: dizziness Physical Examination Vital Signs, Last 4 Hours Temp Pulse Resp BP Pulse Ox 11/09/17 11:15 98.1 F 92 16 128/53 99 11/09/17 08:53 93 18 114/58 98 General: Conversant, No Apparent Distress HEENT: Atraumatic, Normocephaly, Mucus Membranes Moist Neck: No JVD, Normal carotid pulses Cardiac: Reg Rate and Rhythm, Normal S1 and S2, No Murmur Lungs: Normal Breath Sounds, No Wheeze, Rales, Rhonchi Neuro: Alert and responsive, No focal deficits noted Abdomen: Soft, Non-Tender Skin: No rashes noted on visualized skin Musculoskeletal: No Chest Wall Tenderness Extremities: No Clubbing, No Cyanosis, Normal Pulses, Other (Mild bilateral pedal edema. ) Results 11/09/17 03:45 11/08/17 11:38 Lab Results Active Medications Epinephrine HCl (Epinephrine) 0.1 mg INTRATRACH Q1MIN PRN PRN Reason: Bleeding Stop: 05/11/18 09:31 Last Admin: 11/09/17 09:42 Dose: 0.1 mg Ciprofloxacin Lactate (Cipro Premix 400 Mg/200 Ml) 400 mg in 200 mls @ 200 mls/ hr IVPB Q12HR AMINA Stop: 05/10/18 18:01 Last Admin: 11/09/17 05:48 Dose: 200 mls/hr Diltiazem HCl 125 mg/ Sodium (Chloride) 125 mls @ 5 mls/hr IVC .Q24H AMINA; 5 MG/ HR PRN Reason: Protocol Stop: 05/10/18 14:46 Last Titration: 11/08/17 23:15 Dose: 10 mg/hr, 10 mls/hr Metronidazole (Flagyl Premix 500 Mg/100 Ml) 500 mg in 100 mls @ 100 mls/hr IVPB Q8H AMINA Stop: 05/11/18 10:01 Last Admin: 11/09/17 09:55 Dose: 100 mls/hr Pantoprazole Sodium (Protonix) 40 mg IVP Q12HR AMINA Stop: 05/10/18 18:01 Last Admin: 11/09/17 05:48 Dose: 40 mg Laboratory Tests 11/08/17 11/08/17 11/08/17 11:38 11:38 15:10 WBC 24.1 H Hgb 9.4 L Creatinine 1.01 Troponin I 0.03 0.04 H* 11/08/17 11/09/17 11/09/17 20:02 03:45 03:45 WBC 17.2 H Hgb 8.1 L Creatinine Troponin I 0.04 H* 0.04 H* - Imaging and Cardiology Chest Xray: report reviewed Echo: pending - EKG Interpretation EKG results cardiology: personally reviewed (ECG with ST, HR 150s.), other ( Telemetry reveiwed with average HR previous 12 hours noted to be 108, ST. PVCs PACs noted. 5 beat run of non-sustained VT noted.) Consult Discharge Plan - Plan Referrals: Renny Phelan Jr, MD [Primary Care Provider] - <oRd Onofre - Last Filed: 11/09/17 16:11> Date of Encounter: 11/09/17 - Attending Attestation I have personally performed a face to face evaluation on this patient. I have reviewed and agree with the care plan. History and Exam by me shows: 77-year-old female presents with GI bleed no previous cardiac history. She had an episode of SVT during her presentation to emergency department possibly sinus tachycardia at a rate of about 1 40 bpm. Currently sinus rhythm below 100 bpm with no EKG changes suggestive of ischemia. Functional capacity was difficult to assess as she is not fairly active. GI bleed with severe anemia and urgent endoscopy was necessary. Patient with moderate risk for cardiac events with urgent endoscopy which is at low risk procedure. Assessment and Plan Discussion w patient/family: The assessment and plan as outlined above was discussed with the patient and/or family members who expressed understanding and agreement. All questions were answered. Thank you for involving us in the care of your patient. Please call with any questions. History of Present Illness History of present illness: Ms. Valdivia is a 77 year old female All Systems Review: The remainder of the systems were reviewed and are negative Physical Examination Vital Signs, Last 4 Hours Temp Pulse Resp BP Pulse Ox 11/09/17 15:26 98.5 F 85 16 132/54 99 Results 11/09/17 03:45 11/08/17 11:38 Lab Results 11/08/17 11/08/17 11/09/17 20:02 20:02 03:45 WBC Hgb 7.5 L Hct 22.3 L Plt Count Troponin I 0.04 H* 0.04 H* 11/09/17 03:45 WBC 17.2 H Hgb 8.1 L Hct 24.0 L Plt Count 224 Troponin I
[2017-11-09] MEDS: Metoprolol XL (24 HR) Succ 25 MG TAB.ER.24H PO SCH (13:13)
--- NOTE | 2017-11-09 15:53 | Internal Med Progress Note ---
Date of Encounter: 11/09/17 Time of Encounter: 10:50 - Assessment and plan (1) Gastrointestinal hemorrhage with melena Current Visit: Yes Status: Acute Assessment and plan: Patient underwent upper GI endoscopy today. Was found to have a 3 cm hiatal hernia with nonbleeding gastric ulcer and nonbleeding erosive gastropathy and duodenopathy. Will place her on Carafate. GI recommends stopping aspirin. Will recommend follow-up with her interventional neurologist for further recommendations. For now continue to hold aspirin and Plavix while we monitor her blood counts. Continue PPI. High risk for complications. Code(s): K92.1 - Melena (2) SVT (supraventricular tachycardia) Current Visit: Yes Status: Ruled-out Assessment and plan: No clear evidence of SVT. Patient appeared to have sinus tachycardia based on her rhythm strips and cardiology evaluation. Will wean off diltiazem drip. (3) Leukocytosis, unspecified Current Visit: Yes Status: Acute Assessment and plan: Improving. Could be related to acute GI bleed. Patient receiving Cipro and Flagyl. Blood cultures ordered. If they remain negative, will consider discontinuing antibiotics. Qualifiers: Leukocytosis type: unspecified Qualified Code(s): D72.829 - Elevated white blood cell count, unspecified (4) History of cerebral aneurysm repair Current Visit: Yes Status: Acute Assessment and plan: Patient underwent interventional procedure for this. Was on aspirin and Plavix. For now holding aspirin and Plavix due to GI bleed. Will attempt to discuss with [facility] regarding this. (5) DVT prophylaxis Current Visit: No Status: Chronic Assessment and plan: With SCDs SNOMED Code(s): 837123326 - Time Spent With Patient Total time spent is greater than 50% in coordination of care (as documented) at patient's floor/unit and/or counseling patient: - Subjective Interval history: Patient is awake and alert. Underwent upper GI endoscopy this morning. Doing well post procedure. Has mild abdominal pain. No palpitations. - Constitutional Vitals: Temp Pulse Resp BP Pulse Ox 98.5 F 85 16 132/54 99 11/09/17 15:26 11/09/17 15:26 11/09/17 15:26 11/09/17 15:26 11/09/17 15:26 General appearance: Present: cooperative, A&O X 3, pleasant, no acute distress - Neck Neck exam general surgery: Present: supple, trachea midline. Absent: lymphadenopathy - Respiratory Respiratory exam: Present: CTAB. Absent: accessory muscle use, rales, rhonchi, wheezes - Cardiovascular Cardiovascular exam: Present: RRR, +S1, +S2. Absent: diastolic murmur, gallop, rubs, systolic murmur - GI/Abdominal GI/Abdominal exam: Present: normal bowel sounds, soft, tenderness (epigastric), no peritoneal signs. Absent: distended - Extremities Exam Extremities exam: Present: warm, radial pulses palpable and symmetrical. Absent : calf tenderness, cyanotic, pedal edema - Neurological Exam Neurological exam: Present: alert, oriented X3, no focal deficits. Absent: facial droop, speech deficit - Skin Skin exam: Present: dry, intact, pallor Internal Medicine: Result - Labs CBC & Chem 7: 11/09/17 03:45 11/08/17 11:38 Labs: Short CBC 11/08/17 11/09/17 Range/Units 20:02 03:45 WBC 17.2 H (4.3-11.1) K/mcL Hgb 7.5 L 8.1 L (11.5-15.4) g/dL Hct 22.3 L 24.0 L (35.3-44.9) % Plt Count 224 (140-400) K/mcL Neutrophils # 13.9 H (1.6-8.9) K/mcL Cardiac Enzymes 11/08/17 11/08/17 11/09/17 Range/Units 15:10 20:02 03:45 Troponin I 0.04 H* 0.04 H* 0.04 H* (< 0.04) ng/mL - ABG Interpretation ABG results: PT/INR, D-dimer PT 11.9 Seconds (9.4-12.1) 11/08/17 11:38 Consult Discharge Plan - Plan Referrals: Renny Phelan Jr, MD [Primary Care Provider] -
[2017-11-09] MEDS: Sucralfate 1 GM TABLET PO SCH ×2 (17:19→21:48)
[2017-11-10] MEDS: MetroNIDAZOLE 500 MG/100 ML 500 MG/100 ML BAG IVPB SCH (02:28)
[2017-11-10 04:52] LABS: Eosinophils % 0.4 %; Hematocrit 20.9 % (35.3-44.9); Hemoglobin 6.9 g/dL (11.5-15.4); Lymphocytes # 1.1 K/mcL (0.6-4.6); Lymphocytes % 12.1 %; Mean Corpuscular Hemoglobin 30.3 pg (28.0-33.3); Mean Corpuscular Volume 91.7 fL (83.0-100.0); Mean Platelet Volume 10.3 fL (9.4-12.4); Monocytes # 0.6 K/mcL (0.0-1.3); Monocytes % 6.2 %; Neutrophils # 6.9 K/mcL (1.6-8.9); Nucleated Red Blood Cells 0.4 /100 WBC (0); Platelet Count 201 K/mcL (140-400); Red Blood Count 2.28 M/mcL (3.82-4.97); Red Cell Distribution Width 15.4 % (11.5-14.5); Segmented Neutrophils % 76.3 %
[2017-11-10 05:13] LABS: BUN/Creatinine Ratio 34 (6-26); Blood Urea Nitrogen 23 mg/dL (8-23); Calcium 8.1 mg/dL (8.6-10.3); Carbon Dioxide 22 mEq/L (23-29); Chloride 115 mEq/L (98-107); Glucose 135 mg/dL (70-105); Osmolality,Calculated 296 (280-300); Potassium 3.9 mEq/L (3.5-5.1); Sodium 140 mEq/L (136-145); eGFR For African Americans > 60 (> 60); eGFR For Non-African Americans > 60 (> 60)
[2017-11-10] MEDS: Pantoprazole 40 MG VIAL IVP SCH ×2 (07:06→21:02)
[2017-11-10] MEDS ORDERED: 0.9 % Sodium Chloride 250 ML ONE (09:23)
[2017-11-10] MEDS: Sucralfate 1 GM TABLET PO SCH ×4 (10:04→21:01)
[2017-11-10] MEDS: Metoprolol XL (24 HR) Succ 25 MG TAB.ER.24H PO SCH (10:04)
--- NOTE | 2017-11-10 10:51 | Internal Med Progress Note ---
Date of Encounter: 11/10/17 Time of Encounter: 10:48 - Assessment and plan (1) Gastrointestinal hemorrhage with melena Current Visit: Yes Status: Acute Assessment and plan: Improving. No new episodes of melena. Upper GI endoscopy done yesterday showed erosive gastropathy and duodenopathy. Case has been discussed with gastroenterology and neuro radiologist at [facility]. Recommended to stop Plavix completely. Holding aspirin temporarily due to acute illness. May resume aspirin at a later date once her blood counts stabilize in her symptoms of gastritis resolved. Patient is also receiving Carafate. Hemoglobin level at 6.9 today. We will transfuse 1 unit PRBC. Continue PPI intravenously. Moderate risk for complications. Code(s): K92.1 - Melena (2) Leukocytosis, unspecified Current Visit: Yes Status: Acute Assessment and plan: Resolved. WBC count normal now. Most likely leukocytosis related to acute illness and GI bleed. Patient was receiving Cipro and Flagyl. Will complete 5 day course and stop antibiotics after that. Qualifiers: Leukocytosis type: unspecified Qualified Code(s): D72.829 - Elevated white blood cell count, unspecified (3) SVT (supraventricular tachycardia) Current Visit: Yes Status: Ruled-out (4) History of cerebral aneurysm repair Current Visit: Yes Status: Acute Assessment and plan: As mentioned above, discussed with the neuroradiologist at [facility]. Stopping Plavix. Follow-up with PCP for further management. (5) DVT prophylaxis Current Visit: Yes Status: Chronic Assessment and plan: On SCDs. SNOMED Code(s): 086069814 - Time Spent With Patient Total time spent is greater than 50% in coordination of care (as documented) at patient's floor/unit and/or counseling patient: - Subjective Interval history: Patient is lying in bed. Appears comfortable. Denies any new complaints at this time. No nausea or vomiting or abdominal pain. No fever or chills. No palpitations. No new episodes of hematemesis or melena. - Constitutional Vitals: Temp Pulse Resp BP Pulse Ox 98.0 F 99 18 124/61 96 11/10/17 10:20 11/10/17 10:17 11/10/17 10:17 11/10/17 10:17 11/10/17 10:20 General appearance: Present: cooperative, A&O X 3, pleasant, no acute distress - Neck Neck exam general surgery: Present: supple, trachea midline. Absent: lymphadenopathy - Respiratory Respiratory exam: Present: CTAB. Absent: accessory muscle use, rales, rhonchi, wheezes - Cardiovascular Cardiovascular exam: Present: RRR, +S1, +S2. Absent: diastolic murmur, gallop, rubs, systolic murmur - GI/Abdominal GI/Abdominal exam: Present: normal bowel sounds, soft, no peritoneal signs. Absent: distended, tenderness - Extremities Exam Extremities exam: Present: warm, radial pulses palpable and symmetrical. Absent : calf tenderness, cyanotic, pedal edema - Neurological Exam Neurological exam: Present: alert, oriented X3, no focal deficits. Absent: facial droop, speech deficit - Skin Skin exam: Present: dry, intact, pallor Internal Medicine: Result - Labs CBC & Chem 7: 11/10/17 04:18 11/10/17 04:18 Labs: Short CBC 11/10/17 Range/Units 04:18 WBC 9.1 (4.3-11.1) K/mcL Hgb 6.9 L (11.5-15.4) g/dL Hct 20.9 L (35.3-44.9) % Plt Count 201 (140-400) K/mcL Neutrophils # 6.9 (1.6-8.9) K/mcL BMP 11/10/17 04:18 Sodium 140 Potassium 3.9 Chloride 115 H Carbon Dioxide 22 L BUN 23 Creatinine 0.67 Glucose 135 H Calcium 8.1 L - ABG Interpretation ABG results: PT/INR, D-dimer PT 11.9 Seconds (9.4-12.1) 11/08/17 11:38 Consult Discharge Plan - Plan Referrals: Renny Phelan Jr, MD [Primary Care Provider] -
--- NOTE | 2017-11-10 13:19 | Electrocardiograph Report ---
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
--- NOTE | 2017-11-10 13:21 | Electrocardiograph Report ---
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
[2017-11-10] MEDS: metroNIDAZOLE 500 MG TABLET PO SCH ×2 (15:44→21:01)
[2017-11-11 05:01] LABS: Basophils % 0.2 %; Eosinophils # 0.2 K/mcL (0.0-0.6); Hematocrit 26.2 % (35.3-44.9); Immature Granulocytes % 4.2 % (0-4); Lymphocytes # 1.7 K/mcL (0.6-4.6); Lymphocytes % 17.6 %; Mean Corpuscular HGB Conc 32.4 g/dL (31.6-35.5); Mean Corpuscular Hemoglobin 29.6 pg (28.0-33.3); Mean Corpuscular Volume 91.3 fL (83.0-100.0); Mean Platelet Volume 10.3 fL (9.4-12.4); Monocytes # 0.7 K/mcL (0.0-1.3); Neutrophils # 6.6 K/mcL (1.6-8.9); Nucleated Red Blood Cells 0.3 /100 WBC (0); Platelet Count 230 K/mcL (140-400); Red Blood Count 2.87 M/mcL (3.82-4.97); Red Cell Distribution Width 16.7 % (11.5-14.5)
[2017-11-11 05:05] LABS: Hemoglobin 8.5 g/dL (11.5-15.4)
[2017-11-11] MEDS: Pantoprazole 40 MG VIAL IVP SCH (06:16)
[2017-11-11] MEDS: Metoprolol XL (24 HR) Succ 25 MG TAB.ER.24H PO SCH (08:49)
[2017-11-11] MEDS: Sucralfate 1 GM TABLET PO SCH ×2 (08:49→08:50)
[2017-11-11] MEDS: metroNIDAZOLE 500 MG TABLET PO SCH (08:49)
--- NOTE | 2017-11-11 09:31 | Discharge Summary ---
- NOTES TO OUTPATIENT PROVIDER Notes to Outpatient Provider: Patient admitted with GI bleeding and anemia. Found to have erosive gastropathy and duodenopathy. Stopped Plavix after discussing with neuroradiologist. Holding aspirin temporarily. Resume aspirin at a later date once her blood counts improve and she is not having any symptoms of bleeding anymore. Date of Encounter: 11/11/17 Time of Encounter: 09:31 - Discharge Diagnosis (1) Gastrointestinal hemorrhage with melena Priority: Primary Status: Acute Code(s): K92.1 - Melena (2) Leukocytosis, unspecified Priority: Secondary Status: Acute Qualifiers: Leukocytosis type: unspecified Qualified Code(s): D72.829 - Elevated white blood cell count, unspecified (3) SVT (supraventricular tachycardia) Priority: Secondary Status: Ruled-out (4) History of cerebral aneurysm repair Priority: Secondary Status: Acute (5) DVT prophylaxis Priority: Secondary Status: Chronic SNOMED Code(s): 448099132 Hospital course: Ms. Valdivia is a 77 year old female patient with a history of coronary artery disease, prior CVA, who presented to the ER with complaints of generalized weakness. She was found to have a low hemoglobin level. She was tachycardic on presentation and initially in the ER was suspected of having SVT. She received adenosine and then was placed on Cardizem drip. Cardiology evaluated her rhythm strips and did not believe she had any signs of SVT. Most likely she had sinus tachycardia due to anemia. She received 2 units PRBC transfusion. She then underwent upper GI endoscopy which showed esophageal stenosis, hiatal hernia and nonbleeding gastric ulcer. She also had erosive gastropathy and duodenopathy. Per GI recommendations, aspirin and Plavix were held. I discussed her case with the interventional neuroradiologist at [facility] where she had previously undergone stenting within this cavernous and supraclinoid segments of the right internal carotid artery. Since it has been several years since she underwent this procedure, the recommended stopping Plavix. They recommended holding aspirin due to acute GI bleed and to resume it at a later date once her symptoms have improved. In the meantime she received IV PPI and Carafate to help with her gastritis and ulcer. She we will follow up with GI for further management as outpatient. She will be discharged on oral PPI and Carafate. Her blood pressure has been elevated here and she has been started on metoprolol which she will continue to take at home. Patient had mild troponin elevation which is believed to be due to demand ischemia. She also had leukocytosis and was treated with IV antibiotics. Leukocytosis was mostly related to acute blood loss anemia and stress. She did not have any other source of infection. As such she does not need to take any further antibiotics. Discharge discussed with: patient, nurse - Time Spent with Patient Total time spent providing and/or coordinating discharge services: Greater than 30 minutes (32 min) - Discharge Medications Prescriptions: Metoprolol XL (24 HR) Succ [Toprol Xl] 12.5 mg PO DAILY #30 tab.er.24h Omeprazole [PriLOSEC] 20 mg PO BIDAC #60 cap Sucralfate [Carafate] 1 gm PO QIDAC #120 tablet Home Medications: Amitriptyline [Elavil] 25 mg PO HS 11/08/17 [History] Metoprolol XL (24 HR) Succ [Toprol Xl] 12.5 mg PO DAILY #30 tab.er.24h 11/11/17 [Rx] Omeprazole [PriLOSEC] 20 mg PO BIDAC #60 cap 11/11/17 [Rx] Sucralfate [Carafate] 1 gm PO QIDAC #120 tablet 11/11/17 [Rx] Allergies/Adverse Reactions: 3 Allergy/AdvReac Type Severity Reaction Status Date / Time No Known Allergies Allergy Verified 10/24/17 14:59 Date of admission: 11/08/17 14:25 Primary care physician: Renny Phelan Jr, MD Consults: 11/08/17 14:27 Consult to Cardiology [CONS] Routine Comment: Consulting Provider: Cardiology Lynette Reason for Consult: SVT with rate in 160-200 now in 120-[address] adenosine Time Notified: 14:28 Call Completed: No Consult to Gastroenterology [CONS] Routine Consulting Provider: Gastroenterology Lynette Reason for Consult: Upper GIB Time Notified: 14:27 Call Completed: No 11/09/17 15:35 Consult to [employer] [CONS] Routine Reason for SW Consult: Possible rehab at discharge. Discharging clinician: Hernan Mckeon Anticipated date of discharge: 11/11/17 - Constitutional Vitals: Temp Pulse Resp BP Pulse Ox 97.8 F 86 15 140/68 97 11/11/17 06:41 11/11/17 06:41 11/11/17 06:41 11/11/17 06:41 11/11/17 06:41 General appearance: Present: cooperative, A&O X 3, pleasant, no acute distress - Neck Neck exam general surgery: Present: supple, trachea midline. Absent: lymphadenopathy - Respiratory Respiratory exam: Present: CTAB. Absent: accessory muscle use, rales, rhonchi, wheezes - Cardiovascular Cardiovascular exam: Present: RRR, +S1, +S2. Absent: diastolic murmur, gallop, rubs, systolic murmur - GI/Abdominal GI/Abdominal exam: Present: normal bowel sounds, soft, no peritoneal signs. Absent: distended, tenderness - Extremities Exam Extremities exam: Present: warm, radial pulses palpable and symmetrical. Absent : calf tenderness, cyanotic, pedal edema - Neurological Exam Neurological exam: Present: alert, CN II-XII intact, oriented X3, no focal deficits. Absent: facial droop, speech deficit - Patient Status Disposition: Home, Self-Care Condition: Good Functional capacity at discharge: independent ambulation Overall status at discharge: patient is progressing back to baseline - Discharge Instructions Follow Up With: Renny Phelan Jr, MD [Primary Care Provider] - (1-2 weeks) Cullen Schmidt MD [Partnered Physician] - (1-2 weeks) - Diet and Activity Activity: increase activity as tolerated Diet: low fat, low cholesterol, low salt diet
[2017-11-11 10:06] VITALS: BP 133/65
== END 2017-11-11 10:27 | disposition home or self-care (01) | DRG 378 ==
LOC: 2SOUTHHOLD 11:18 → EMEROO 11:18 → 2NENU 12:32 → SUATTDRO 14:24 → 2NENU 15:45
PROVIDERS: ADMIT Internal Medicine; ATTEND Internal Medicine